=== PATIENT | male | born 1950 | race Caucasian/White ===

== ENCOUNTER 2021-01-26 10:18 | Emergency (ER) | payer OTHER, SELFPAY ==
[2021-01-26 10:49] VITALS: BP 205/105; PULSE 93; RESP 18; TEMP 37; O2SAT 93; BMI 40.4
[2021-01-26 11:41] LABS: Basophils % 0.4 %; Eosinophils # 0.2 10^3/uL (0.0-0.8); Eosinophils % 3.2 %; Hematocrit 43.8 % (42.0-52.0); Hemoglobin 14.2 g/dL (11.7-16.6); Lymphocytes # 1.7 10^3/uL (0.8-4.8); Lymphocytes % 23.8 %; Mean Corpuscular HGB Conc 32.4 g/dL (30.0-36.0); Mean Corpuscular Hemoglobin 28.6 pg (28.0-34.0); Mean Corpuscular Volume 88.1 fl (80-94); Mean Platelet Volume 9.9 fL (7.4-10.4); Monocytes # 0.4 10^3/uL (0.2-0.9); Neutrophils # 4.78 10^3/uL (1.8-7.7); Neutrophils % 66.3 %; Nucleated Red Blood Cells % 0 %; Platelet Count 175 10^3/cmm (130-400); Red Blood Count 4.97 10^6/uL (4.1-5.3); Red Cell Distribution Width 13.6 % (12.1-15.1); White Blood Count 7.2 10^3/uL (4.0-10.0)
[2021-01-26 12:04] LABS: Alanine Aminotransferase 30 U/L (0-41); Albumin Level 3.8 g/dL (3.5-5.2); Alkaline Phosphatase 128 IU/L (40-130); Anion Gap 15.7 (5-19); Aspartate Amino Transferase 26 U/L (0-40); Blood Urea Nitrogen 6 mg/dL (8-23); Calcium 8.5 mg/dL (8.5-10.5); Carbon Dioxide 27 mmol/L (22-29); Chloride 97 mmol/L (98-107); Globulin 3.1 g/dL (1.3-4.6); Glucose 245 mg/dL (65-115); Magnesium 1.7 mg/dL (1.7-2.3); Osmolality Calculated 288 mOsm/kg (285-295); Potassium 3.7 mmol/L (3.5-5.1); Sodium 136 mmol/L (136-145); Total Bilirubin 0.3 mg/dL (0.15-1.2); Total Protein 6.9 g/dL (6.6-8.7)
[2021-01-26] MEDS: metoprolol tartrate 25 mg Tablet PO (12:14)
--- NOTE | 2021-01-26 12:17 | W.ED.SKABFB ---
HPI - Skin/Abscess/Foreign Bdy General: Chief complaint: Skin/Abscess/Foreign Body Stated complaint: FELL 2 WKS AGO: BLE INJURIES Time Seen by Provider: 01/26/21 11:02 History of Present Illness: HPI narrative: Patient is a 70-year-old male with past medical history of hypertension chronic venous stasis chronic lymphadenopathy. He is here with complaints of of injury to his toenails and chronic rash on his feet. [facility] does not sound done in quite some time. Last week he hit his toe on wash machine at home and ripped off his toenail and then injured his other toe turning it off as well. He is allow these sores to heal on his own. He is also here with concerns about chronic wounds and rashes on his feet is asking for dressing. Does not have any active lesions rashes or wounds on his feet he does have some peeling skin and pink liver layers of skin. Is able to perform his ADLs at home is able to walk. No fevers chills chest pain nausea vomiting diarrhea altered mental status no discharge from Review of Systems General: Reports: 10 or more systems reviewed and unremarkable except in HPI and below Physical Exam Const: COMMON NORMALS: no acute distress, average body habitus and patient oriented x3 EXAM LIMITATIONS: no altered mental status and no behavioral limitations GENERAL APPEARANCE: cooperative and comfortable; not well kempt, not in distress, not ill appearing and not frail appearing ORIENTATION/CONSCIOUSNESS: Yes awake, Yes oriented to person, Yes oriented to place and Yes oriented to time HENMT: COMMON NORMALS: normocephalic and atraumatic HEAD & SCALP: normocephalic and atraumatic Eye: COMMON NORMALS: Equal, round and reactive pupils present and EOMs intact bilaterally PUPIL: Yes Equal, round and reactive pupils present Resp: COMMON NORMALS: normal respiratory effort and clear to auscultation bilaterally EFFORT & INSPECTION: No abnormal respiratory pattern, No tachypneic and No decreased respiratory effort AUSCULTATION: clear to auscultation bilaterally Cardio: COMMON NORMALS: regular rate and regular rhythm RATE: regular rate RHYTHM: regular rhythm GI: COMMON NORMALS: Normal to inspection, nondistended, normoactive bowel sounds present Extremity: COMMON NORMALS: negative for full ROM and negative for no clubbing, cyanosis or edema GENERAL: Yes normal exam except as noted OTHER: Patient has substantial bilateral extremity venous stasis dermatitis with hemidesiderin deposits. He does have a scabbed over bilateral great toenails. Some peeling skin appears to be epidermis on his right foot but there is healthy epidermis underneath. No evidence of any wounds infection discharge abscesses extremely long toenails and caked dirt and skin crusting on the top of his nails Neuro: COMMON NORMALS: patient oriented x3, CN's II-XII intact bilaterally and moves all extremities; negative for no focal motor deficits SENSORIUM/ORIENTATION: Yes oriented to person, Yes oriented to place and Yes oriented to time Psych: COMMON NORMALS: mental status grossly normal APPEARANCE: No well kempt Skin: COMMON NORMALS: no rashes or lesions noted and no wounds GENERAL SKIN EXAM: no rashes or lesions noted Course ED course: Long conversation with the patient he does not have any active wounds or infections that initially need dressing. The patient is unable to care for his own feet so putting dressings on I feel would only stick to his wounds stay on there and cause more problems when they attempt to be peeled off. I think the best course of him is to have his wounds clean and dry. We will clean them with some soap and water get x-rays to make sure there is no damage underneath or any evidence of osteomyelitis. Will check basic labs on him as well as make sure there is no signs of infection he is not had any updated in a while. Blood pressure was elevated at 205 systolic. He refused an IV to give him IV enalapril will give him some metoprolol. He is not having any chest pain altered mental status shortness of breath and is urinating so do not think this is hypertensive emergency but will go ahead and check his labs to be sure. Patient's labs unremarkable. I did discuss with him blood pressure control. He continued to increase over 200 systolic. He insists that this is only because he is in a medical facility. I discussed with him that this is still dangerous and needs to be treated he refused IV placement or any of IV meds or any further work-up or treatment. He also refused his toe x-rays. He asked to be discharged. I stated this would be against my medical advice and he agreed. At this point the patient is competent to make his own medical decisions I did explain to him that he has a risk of or further decompensation if he left AGAINST MEDICAL ADVICE and he agreed that he would still like to leave. Did discuss with him that he is welcome to return to the emergency department at any time for further treatment evaluation and his leaving his medical advice would not be held against him at any time. Patient understood this agreed to sign paperwork and will be discharged. Vital Signs: Vital signs: Vital Signs Temperature 98.6 F 01/26/21 10:49 Pulse Rate 93 01/26/21 10:49 Respiratory Rate 18 01/26/21 10:49 Blood Pressure 205/105 01/26/21 10:49 Pulse Oximetry 93 01/26/21 10:49 MDM - Skin/Abscess/Foreign Bdy MDM Narrative: Medical decision making narrative: Differential includes osteomyelitis chronic venous stasis cellulitis toe fracture. Patient is awake alert and oriented no acute distress vital signs are normal with exception of elevated blood pressure but is not have any symptoms of this. Would not consider this hypertensive emergency does not need aggressive treatment we will going give a dose of metoprolol. There is no idea what medicines he takes at home will attempt to bring him down a little bit. We will go ahead check basic labs on him as well. Does not need immediate need immediate resuscitation or any urgent procedures at this time Lab Data: Labs: Lab Results 01/26/21 01/26/21 Range/Units 11:30 11:30 WBC 7.2 (4.0-10.0) 10^3/ uL RBC 4.97 (4.1-5.3) 10^6/u L Hgb 14.2 (11.7-16.6) g/dL Hct 43.8 (42.0-52.0) % MCV 88.1 (80-94) fl MCH 28.6 (28.0-34.0) pg MCHC 32.4 (30.0-36.0) g/dL RDW 13.6 (12.1-15.1) % Plt Count 175 (130-400) 10^3/c mm MPV 9.9 (7.4-10.4) fL Neut % (Auto) 66.3 % Lymph % (Auto) 23.8 % Mccormick % (Auto) 6.0 % Eos % (Auto) 3.2 % Baso % (Auto) 0.4 % Neut # (Auto) 4.78 (1.8-7.7) 10^3/u L Lymph # (Auto) 1.7 (0.8-4.8) 10^3/u L Mccormick # (Auto) 0.4 (0.2-0.9) 10^3/u L Eos # (Auto) 0.2 (0.0-0.8) 10^3/u L Baso # (Auto) 0.0 (0.0-0.1) 10^3/u L Nucleated RBC % (a uto) 0 % Nucleated RBCs # 0.0 /100WBC Sodium 136 (136-145) mmol/L Potassium 3.7 (3.5-5.1) mmol/L Chloride 97 L (98-107) mmol/L Carbon Dioxide 27 (22-29) mmol/L Anion Gap 15.7 (5-19) BUN 6 L (8-23) mg/dL Creatinine 0.5 L (0.7-1.2) mg/dL GFR Calculation Not Reportable Glucose 245 H (65-115) mg/dL Calculated Osmolal ity 288 (285-295) mOsm/k g Calcium 8.5 (8.5-10.5) mg/dL Magnesium 1.7 (1.7-2.3) mg/dL Total Bilirubin 0.3 (0.15-1.2) mg/dL AST 26 (0-40) U/L ALT 30 (0-41) U/L Alkaline Phosphata se 128 (40-130) IU/L Total Protein 6.9 (6.6-8.7) g/dL Albumin 3.8 (3.5-5.2) g/dL Globulin 3.1 (1.3-4.6) g/dL Discharge Plan Discharge Patient Disposition: Left Against Medical Advice Clinical Impression: Venous stasis dermatitis of both lower extremities Condition: Stable Discharge Orders: Discharge ED (Routine); Ordered 01/26/21 Ordered By: Joao Srinivasan Referrals: Amy Abdullahi [Primary Care Provider] - Patient Instructions: Diabetic Foot Care (ED), Leg Edema (ED) Activity Restrictions/Additional Instructions: Follow-up with your primary care provider soon as possible. You need to know what medicines you are on and make sure you are taking them properly. Even though you are leaving AGAINST MEDICAL ADVICE you are welcome to return for further treatment at any time with no hard feelings. Keep your feet clean and dry follow-up with your sleeping room cleaner as scheduled return to the emergency department with any new or worsening symptoms particularly chest pain shortness of breath severe headache vision changes or altered mental status accompanied with high blood pressure Coding Level of Care Code ED [employer] for Bina Chan Exam Comprehensive
[2021-01-26 12:58] VITALS: BP 221/115
== END 2021-01-26 12:59 | disposition left against medical advice (07) ==
PROVIDERS: Emergency Provider Family Medicine; PCP Nurse Practitioner Family
DX: I87.2 Venous insufficiency (chronic) (peripheral) (principal); Z53.21 Procedure and treatment not carried out due to patient leaving prior to being seen by health care provider
CPT/HCPCS: 80053; 83735; 85025; 99283